=== PATIENT | male | born 1995 | race Hispanic/Latino ===

== ENCOUNTER 2017-07-04 20:15 | Emergency (ER) | payer SELFPAY | END 2017-07-04 21:41 | disposition home or self-care (01) | LOC: ERS 20:15 | DX: Z00.00 Encounter for general adult medical examination without abnormal findings (principal) | CPT/HCPCS: 99284 ==

== ENCOUNTER 2017-07-11 22:11 | Emergency (ER) | payer SELFPAY ==
--- NOTE | 2017-07-11 23:08 | RAD ---
CHEST TWO VIEWS: 07/11/17 HISTORY: Cough. COMPARISON: 06/19/14. FINDINGS: The cardiac silhouette and pulmonary vasculature are unremarkable. Mediastinum is midline. There is n o confluent air space consolidation, pneumothorax or pleural fluid evident. IMPRESSION: No active cardiopulmonary abnormalities are demonstrated. POS: [facility]
[2017-07-11 23:09] LABS: #Eosinphils 0.7 thou/uL (0.0-0.7); #Lymphocytes 3.2 thou/uL (1.20-3.40); #Monocytes 0.9 thou/uL (0.11-0.59); #Neutrophils 3.9 thou/uL (1.40-6.50); %Basophils 0.5 % (0.0-1.0); %Eosinophils 8.2 % (0.0-10.0); %Lymphocytes 36.5 % (21.0-51.0); %Monocytes 10.5 % (0.0-10.0); %Neutrophils 44.3 % (42.0-75.0); Hemoglobin 15.1 g/dL (14.0-18.0); Mean Corpuscular HGB CONC 34.5 g/dL (32.0-36.0); Mean Corpuscular Hemoglobin 30.6 pg (27.0-31.0); Mean Corpuscular Volume 88.8 fl (80.0-94.0); Mean Platelet Volume 6.5 fL (7.4-10.4); Platelet Count 259 thou/uL (130-400); RBC Distribution Width 11.5 % (11.5-14.5); Red Blood Cell (RBC) Count 4.93 mill/uL (4.70-6.10); White Blood Cell (WBC) Count 8.7 thou/uL (4.8-10.8)
[2017-07-11 23:37] LABS: Magnesium 2.1 mg/dL (1.6-2.6); Uric Acid 3.8 mg/dL (3.5-7.2)
[2017-07-11 23:38] LABS: ALT (SGPT) Less than 7 U/L (8-55); AST (SGOT) 18 U/L (5-34); Albumin 4.4 g/dL (3.5-5.0); Alkaline Phosphatase 83 U/L (40-150); Anion Gap 11 mmol/L (10-20); BUN (Urea Nitrogen) 12 mg/dL (8.9-20.6); Bilirubin, Total 0.4 mg/dL (0.2-1.2); Calc. Creatinine Clearance 0 mL/min (70-130); Calcium 9.2 mg/dL (7.8-10.44); Carbon Dioxide 29 mmol/L (22-29); Chloride 106 mmol/L (98-107); Estimated GFR-MDRD Greater than 90; Globulin 3.1 g/dL (2.4-3.5); Glucose 85 mg/dL (70-105); Potassium 3.6 mmol/L (3.5-5.1); Protein, Total 7.5 g/dL (6.0-8.3); Sodium 142 mmol/L (136-145)
--- NOTE | 2017-07-15 13:42 | EKG ---
Test Reason : Blood Pressure : / mmHG Vent. Rate : 066 BPM Atrial Rate : 066 BPM P-R Int : 118 ms QRS Dur : 114 ms QT Int : 386 ms P-R-T Axes : 068 072 026 degrees QTc Int : 404 ms Normal sinus rhythm with sinus arrhythmia Incomplete right bundle branch block Borderline ECG Confirmed by BRYAN KOEHLER M.D. ([id number]), health editor BETHANY HARRY ([id number]) on 07/15/2017 1:42:28 PM Referred By: Confirmed By:BRYAN KOEHLER M.D.
== END 2017-07-12 00:05 | disposition home or self-care (01) ==
LOC: ERS 22:11
DX: R53.1 Weakness (principal); J45.909 Unspecified asthma, uncomplicated
CPT/HCPCS: 36415; 71046; 80053; 83615; 83735; 84443; 84550; 85025; 93005

== ENCOUNTER 2018-09-10 21:24 | Emergency (ER) | payer SELFPAY ==
[2018-09-10] MEDS ORDERED: Lidocaine 1% PF 5 ML VIAL ONE (22:18)
[2018-09-10] MEDS ORDERED: Ibuprofen 800 MG TAB ONE (22:28)
[2018-09-10] MEDS ORDERED: Adacel (T-DAP) 0.5 ML SYRINGE ONE (22:28)
[2018-09-10] MEDS ORDERED: Bacitracin Zinc 1 Packet ONE (22:44)
== END 2018-09-10 23:00 | disposition home or self-care (01) ==
LOC: ERS 21:24
DX: S61.412A Laceration without foreign body of left hand, initial encounter (principal); J45.909 Unspecified asthma, uncomplicated; W26.0XXA Contact with knife, initial encounter
CPT/HCPCS: 12001; 90471; 90715; J2001

== ENCOUNTER 2019-05-19 06:37 | Emergency (ER) | payer SELFPAY ==
[2019-05-19] MEDS ORDERED: Ondansetron ODT 8 MG TAB ONE (06:53)
== END 2019-05-19 08:49 | disposition home or self-care (01) ==
LOC: ERS 06:37
DX: R11.2 Nausea with vomiting, unspecified (principal); R50.9 Fever, unspecified
CPT/HCPCS: 87804; 99284

== ENCOUNTER 2021-12-03 14:38 | Emergency (ER) | payer SELFPAY ==
[~2021-12-03 14:38] MED LIST: Iopamidol-370 76% 500 ML 1 ML ONE
[2021-12-03 15:23] LABS: Hemoglobin 15.3 g/dL (14.0-18.0); Mean Corpuscular HGB CONC 33.4 g/dL (32.0-36.0); Mean Corpuscular Hemoglobin 30.2 pg (27.0-31.0); Mean Corpuscular Volume 90.4 fL (78.0-98.0); Mean Platelet Volume 7.2 fL (7.4-10.4); Platelet Count 181 thou/uL (130-400); RBC Distribution Width 11.9 % (11.5-14.5); Red Blood Cell (RBC) Count 5.07 mill/uL (4.70-6.10); White Blood Cell (WBC) Count 4.9 thou/uL (4.8-10.8)
[2021-12-03 15:44] LABS: Band 19 % (5-11); Eosinophils 1 % (0-10); Lymphocytes 17 % (21-51); MDiff Complete? YES; Monocytes 7 % (0-10); Neutrophil 55 % (42-75); Platelet Morphology Comment Appears Adequate; RBC Morphology Normal; Reactive Lymphocytes 1 % (0-10)
[2021-12-03 15:56] LABS: ALT (SGPT) 12 U/L (8-55); AST (SGOT) 29 U/L (5-34); Albumin 4.3 g/dL (3.5-5.0); Alkaline Phosphatase 70 U/L (40-110); Anion Gap 16 mmol/L (10-20); BUN (Urea Nitrogen) 7 mg/dL (8.9-20.6); Bilirubin, Total 0.7 mg/dL (0.2-1.2); Calc. Creatinine Clearance 0 mL/min (70-130); Carbon Dioxide 21 mmol/L (22-29); Chloride 101 mmol/L (98-107); Estimated GFR 115; Globulin 3.4 g/dL (2.4-3.5); Glucose 121 mg/dL (70-105); Lipase 11 U/L (8-78); Potassium 3.6 mmol/L (3.5-5.1); Protein, Total 7.7 g/dL (6.0-8.3); Sodium 134 mmol/L (136-145)
[2021-12-03 16:39] LABS: Bacteria/HPF None Seen HPF (None Seen); Bilirubin Negative (Negative); Blood, Urine Trace (Negative); Clarity Clear (Clear); Glucose, Urine (Dipstick) Normal (Negative); Ketone, Urine 20 mg/dL (Negative); Leukocyte Negative Leu/uL (Negative); Nitrite Negative (Negative); Protein, Urine (Dipstick) 20 mg/dL (Neg-Trace); Specific Gravity, Urine 1.025 (1.002-1.036); Squamous Epithelial None Seen HPF (0-3); Urobilinogen Normal mg/dL (Less than 2); WBC/HPF 0-3 HPF (0-3); pH, Urine 5.5 (5.0-9.0)
== END 2021-12-03 17:45 | disposition home or self-care (01) ==
LOC: ERS 14:38
DX: R10.31 Right lower quadrant pain (principal); E86.0 Dehydration
CPT/HCPCS: 36415; 74177; 80053; 81003; 81015; 83690; 85025; 96360; 96361; Q9967